=== PATIENT | female | born 1970 | race Caucasian/White ===

== ENCOUNTER 2017-09-05 11:08 | Inpatient (IN) | payer BC ==
[~2017-09-05 11:08] MED LIST: ROCURONIUM 50 MG INJ
[2017-09-05] MEDS: CEFAZOLIN 2 GM/50 ML (PMX) 50 ML IVPB (11:30)
[2017-09-05] MEDS ORDERED: LACTATED RINGER'S 1,000 ML IV* (11:30)
[2017-09-05] MEDS ORDERED: CEFAZOLIN 1 GM INJ (12:04)
[2017-09-05] MEDS ORDERED: SODIUM CL BACTERIOSTATIC 30 ML INJ (12:05)
[2017-09-05] MEDS ORDERED: HEPARIN 1000 UNITS/ML 10 ML INJ ×2 (12:17→12:18)
[2017-09-05] MEDS ORDERED: CEPASTAT LOZENGE MT (12:30)
[2017-09-05] MEDS ORDERED: AL HYDROX/MG HYDROX/SIMETH 30 ML CUP PO (12:30)
[2017-09-05] MEDS ORDERED: OXYCODONE/ACETAMINOPHEN (10/325) TAB PO ×2 (12:30)
[2017-09-05] MEDS ORDERED: HYDROmorphONE 0.5 MG/0.5 ML SYG IV (12:30)
[2017-09-05] MEDS ORDERED: NALOXONE (0.4 MG/ML) INJ IV (12:30)
[2017-09-05] MEDS: CEFAZOLIN 1 GM/50 ML (PMX) 50 ML IVPB ×2 (12:30→20:54)
[2017-09-05] MEDS ORDERED: PROPOFOL 20 ML (13:16)
[2017-09-05] MEDS ORDERED: SUCCINYLCHOLINE CHLORIDE 100 MG/5 ML SYG IV (13:16)
[2017-09-05] MEDS ORDERED: MIDAZOLAM 1 MG/ML 2 ML INJ (13:17)
[2017-09-05] MEDS ORDERED: LIDOCAINE 1% (MDV) 20 ML INJ (13:17)
[2017-09-05] MEDS ORDERED: DEXAMETHASONE 4 MG/ML 1 ML INJ (13:46)
[2017-09-05] MEDS ORDERED: ONDANSETRON 4 MG INJ (13:46)
[2017-09-05] MEDS ORDERED: FAMOTIDINE 20 MG INJ (14:00)
[2017-09-05] MEDS: BUPIVACAINE 0.5%/EPI (SDV) 30 ML INJ (14:25)
[2017-09-05] MEDS: SURGIFOAM POWDER 1 GM KIT (14:28)
[2017-09-05] MEDS: THROMBIN 5000 UNIT VIAL (14:29)
[2017-09-05] MEDS: GELATIN SIZE 100 SPONGE (14:30)
[2017-09-05] MEDS: HEPARIN 1000 UNITS/ML 10 ML INJ (14:31)
[2017-09-05] MEDS: CEFAZOLIN 1 GM INJ (14:33)
[2017-09-05] MEDS ORDERED: SUGAMMADEX SODIUM 200 MG/2 ML VIAL IV (16:40)
[2017-09-05] MEDS ORDERED: HYDROmorphONE (0.2 MG/ML) 10ML SYG IV ×2 (17:00)
[2017-09-05] MEDS: HYDROmorphONE 0.2 MG/ML PCA IV (17:01)
[2017-09-05] MEDS: DIPHENHYDRAMINE 50 MG INJ IV ×2 (17:14→19:38)
[2017-09-05] MEDS: MEPERIDINE 25 MG INJ IV (17:14)
[2017-09-05] MEDS: ONDANSETRON 4 MG INJ IV (18:25)
[2017-09-05] MEDS: D5W-0.45 NACL + KCL 20 MEQ 1,000 ML IV ×2 (19:31→22:15)
[2017-09-05] MEDS: GABAPENTIN 300 MG CAP PO (20:48)
[2017-09-05] MEDS: DOCUSATE SODIUM 100 MG CAP PO (22:58)
[2017-09-05] MEDS: ZOLPIDEM 5 MG TAB PO (23:27)
[2017-09-06] MEDS: HYDROmorphONE 0.2 MG/ML PCA IV ×4 (00:45→22:05)
[2017-09-06] MEDS ORDERED: EPHEDrine SULFATE 50 MG/5 ML SYG (04:32)
[2017-09-06] MEDS: CEFAZOLIN 1 GM/50 ML (PMX) 50 ML IVPB (04:36)
[2017-09-06 05:32] LABS: ADD MAN DIFF? NO
[2017-09-06 05:33] LABS: WHITE BLOOD COUNT 8.5 10^3/ul (4.8-10.8)
[2017-09-06 05:33] LABS: BASOPHILS % 0.2 % (0.0-2.0); HEMATOCRIT 29.9 % (37.0-47.0); HEMOGLOBIN 10.5 g/dl (12.0-16.0); LYMPHOCYTES # 0.9 10^3/ul (0.8-2.9); LYMPHOCYTES % 10.4 % (15.0-51.0); MEAN CORPUSCULAR HEMOGLOBIN 34.1 pg (29.0-33.0); MEAN CORPUSCULAR HGB CONC 35.1 g/dl (32.0-37.0); MEAN CORPUSCULAR VOLUME 97.1 fl (82.0-101.0); MEAN PLATELET VOLUME 10.5 fl (7.4-10.4); MONOCYTE # 0.7 10^3/ul (0.3-0.9); MONOCYTES % 7.9 % (0.0-11.0); NEUTROPHIL # 6.9 10^3/ul (1.6-7.5); PLATELET COUNT 223 10^3/UL (140-415); RED BLOOD COUNT 3.08 10^6/ul (4.20-5.40); RED CELL DISTRIBUTION WIDTH 11.8 % (11.5-14.5)
[2017-09-06] MEDS: D5W-0.45 NACL + KCL 20 MEQ 1,000 ML IV ×2 (05:42→18:37)
[2017-09-06 05:55] LABS: ANION GAP 8 (8-16); CARBON DIOXIDE 27 mmol/L (21-31); CHLORIDE 108 mmol/L (97-110); GLUCOSE 124 mg/dl (70-220); MAGNESIUM 1.5 mg/dl (1.7-2.5)
[2017-09-06 06:13] LABS: BLOOD UREA NITROGEN 4 mg/dl (7-20); CREATININE 0.54 mg/dl (0.44-1.00); POTASSIUM 3.7 mmol/L (3.5-5.1); SODIUM 139 mmol/L (135-144)
[2017-09-06] MEDS: HYDROmorphONE 1 MG/ML SYG IV ×3 (07:42→15:41)
[2017-09-06] MEDS: GABAPENTIN 300 MG CAP PO ×4 (07:48→20:08)
[2017-09-06] MEDS ORDERED: GABAPENTIN 300 MG CAP PO (09:00)
[2017-09-06] MEDS: DOCUSATE SODIUM 100 MG CAP PO ×2 (09:04→20:08)
[2017-09-06] MEDS: MAGNESIUM SULFATE 3 GM in DEXTROSE 5% 100 ML IVPB (09:13)
[2017-09-06] MEDS: DIPHENHYDRAMINE 50 MG INJ IV (09:53)
[2017-09-06] MEDS: DIAZEPAM 5 MG TAB PO ×2 (10:02→20:10)
[2017-09-06] MEDS ORDERED: HYDROmorphONE 0.2 MG/ML PCA IV (22:30)
[2017-09-06] MEDS: ACETAMINOPHEN 325 MG TAB PO (22:37)
[2017-09-07] MEDS: HYDROmorphONE 1 MG/ML SYG IV ×8 (01:52→22:52)
[2017-09-07] MEDS: D5W-0.45 NACL + KCL 20 MEQ 1,000 ML IV ×2 (04:05→14:15)
[2017-09-07 05:12] LABS: ADD MAN DIFF? NO
[2017-09-07] MEDS: HYDROmorphONE 0.2 MG/ML PCA IV ×2 (05:16→11:26)
[2017-09-07 05:18] LABS: WHITE BLOOD COUNT 5.2 10^3/ul (4.8-10.8)
[2017-09-07 05:18] LABS: BASOPHILS % 0.4 % (0.0-2.0); EOSINOPHILS % 0.4 % (0.0-7.0); HEMATOCRIT 30.7 % (37.0-47.0); HEMOGLOBIN 10.2 g/dl (12.0-16.0); LYMPHOCYTES # 0.8 10^3/ul (0.8-2.9); LYMPHOCYTES % 15.9 % (15.0-51.0); MEAN CORPUSCULAR HEMOGLOBIN 33.6 pg (29.0-33.0); MEAN CORPUSCULAR HGB CONC 33.2 g/dl (32.0-37.0); MONOCYTE # 0.5 10^3/ul (0.3-0.9); MONOCYTES % 10.3 % (0.0-11.0); NEUTROPHIL # 3.8 10^3/ul (1.6-7.5); NEUTROPHILS % 72.8 % (39.0-77.0); PLATELET COUNT 181 10^3/UL (140-415); RED BLOOD COUNT 3.04 10^6/ul (4.20-5.40); RED CELL DISTRIBUTION WIDTH 11.9 % (11.5-14.5)
[2017-09-07] MEDS: DIAZEPAM 5 MG TAB PO (05:53)
[2017-09-07 06:01] LABS: ANION GAP 8 (8-16); BLOOD UREA NITROGEN 3 mg/dl (7-20); CALCIUM 7.8 mg/dl (8.4-10.2); CARBON DIOXIDE 29 mmol/L (21-31); CHLORIDE 108 mmol/L (97-110); CREATININE 0.53 mg/dl (0.44-1.00); GLUCOSE 113 mg/dl (70-220); MAGNESIUM 1.7 mg/dl (1.7-2.5); POTASSIUM 4.3 mmol/L (3.5-5.1); SODIUM 141 mmol/L (135-144)
[2017-09-07 06:07] LABS: PHOSPHORUS 2.8 mg/dl (2.5-4.9)
[2017-09-07 06:16] LABS: IRON 12 ug/dl (35-150)
[2017-09-07 06:26] LABS: % IRON SATURATION 6 % SAT (22-52); TOTAL IRON BINDING CAPACITY 211 ug/dl (241-421)
[2017-09-07] MEDS: FERROUS FUMARATE (SR) TAB PO ×2 (09:24→20:26)
[2017-09-07] MEDS: GABAPENTIN 300 MG CAP PO ×3 (09:24→21:10)
[2017-09-07] MEDS: DOCUSATE SODIUM 100 MG CAP PO ×2 (09:24→20:27)
[2017-09-07] MEDS: MAGNESIUM SULFATE 2 GM/50 ML 50 ML IVPB (09:26)
[2017-09-07] MEDS ORDERED: OXYCODONE/ACETAMINOPHEN (10/325) TAB PO ×3 (16:09→16:30)
[2017-09-07] MEDS: OXYCODONE/ACETAMINOPHEN (10/325) TAB PO ×2 (16:18→21:10)
[2017-09-07 17:07] LABS: ADD UMIC NO; UR ASCORBIC ACID NEGATIVE (NEGATIVE); UR BILIRUBIN (Dip) NEGATIVE (NEGATIVE); UR BLOOD (Dip) NEGATIVE (NEGATIVE); UR CLARITY CLEAR (CLEAR); UR COLOR YELLOW (YELLOW); UR GLUCOSE (Dip) NEGATIVE (NEGATIVE); UR KETONES (Dip) NEGATIVE (NEGATIVE); UR LEUKOCYTE ESTERASE (Dip) NEGATIVE Leu/ul (NEGATIVE); UR NITRITE (Dip) NEGATIVE (NEGATIVE); UR TOTAL PROTEIN (Dip) NEGATIVE (NEGATIVE); UR UROBILINOGEN (Dip) NEGATIVE (NEGATIVE)
[2017-09-08] MEDS: D5W-0.45 NACL + KCL 20 MEQ 1,000 ML IV ×3 (00:15→20:15)
[2017-09-08] MEDS: DIAZEPAM 5 MG TAB PO (01:25)
[2017-09-08] MEDS: OXYCODONE/ACETAMINOPHEN (10/325) TAB PO ×5 (01:57→21:13)
[2017-09-08] MEDS: HYDROmorphONE 1 MG/ML SYG IV ×4 (04:57→18:12)
[2017-09-08 05:34] LABS: ADD MAN DIFF? NO
[2017-09-08 05:49] LABS: WHITE BLOOD COUNT 5.1 10^3/ul (4.8-10.8)
[2017-09-08 05:49] LABS: BASOPHILS % 0.4 % (0.0-2.0); EOSINOPHILS % 0.8 % (0.0-7.0); HEMATOCRIT 33.5 % (37.0-47.0); HEMOGLOBIN 11.1 g/dl (12.0-16.0); LYMPHOCYTES # 1.1 10^3/ul (0.8-2.9); MEAN CORPUSCULAR HEMOGLOBIN 33.4 pg (29.0-33.0); MEAN CORPUSCULAR HGB CONC 33.1 g/dl (32.0-37.0); MEAN CORPUSCULAR VOLUME 100.9 fl (82.0-101.0); MONOCYTE # 0.4 10^3/ul (0.3-0.9); MONOCYTES % 8.5 % (0.0-11.0); NEUTROPHIL # 3.5 10^3/ul (1.6-7.5); NEUTROPHILS % 69.1 % (39.0-77.0); PLATELET COUNT 211 10^3/UL (140-415); RED BLOOD COUNT 3.32 10^6/ul (4.20-5.40); RED CELL DISTRIBUTION WIDTH 11.9 % (11.5-14.5)
[2017-09-08 06:44] LABS: ANION GAP 12 (8-16); BLOOD UREA NITROGEN 3 mg/dl (7-20); CALCIUM 8.8 mg/dl (8.4-10.2); CARBON DIOXIDE 30 mmol/L (21-31); CHLORIDE 106 mmol/L (97-110); CREATININE 0.47 mg/dl (0.44-1.00); GLUCOSE 103 mg/dl (70-220); MAGNESIUM 1.8 mg/dl (1.7-2.5); POTASSIUM 4.2 mmol/L (3.5-5.1); SODIUM 144 mmol/L (135-144)
[2017-09-08] MEDS: FERROUS FUMARATE (SR) TAB PO ×2 (08:31→21:13)
[2017-09-08] MEDS: DOCUSATE SODIUM 100 MG CAP PO ×2 (08:32→21:13)
[2017-09-08] MEDS: GABAPENTIN 300 MG CAP PO ×3 (08:32→21:13)
[2017-09-08] MEDS: ONDANSETRON 4 MG INJ IV (16:40)
[2017-09-08] MEDS: BISACODYL 10 MG SUPP PR (18:12)
[2017-09-09] MEDS: HYDROmorphONE 1 MG/ML SYG IV ×2 (01:06→08:39)
[2017-09-09] MEDS: D5W-0.45 NACL + KCL 20 MEQ 1,000 ML IV ×2 (06:15→14:22)
[2017-09-09] MEDS: OXYCODONE/ACETAMINOPHEN (10/325) TAB PO ×2 (06:46→12:40)
[2017-09-09] MEDS: FERROUS FUMARATE (SR) TAB PO (08:40)
[2017-09-09] MEDS: GABAPENTIN 300 MG CAP PO ×2 (08:40→12:41)
[2017-09-09] MEDS: DOCUSATE SODIUM 100 MG CAP PO (08:40)
[2017-09-09] MEDS: ONDANSETRON 4 MG INJ IV (10:39)
[2017-09-09] MEDS: DIAZEPAM 5 MG TAB PO (14:52)
== END 2017-09-09 15:33 | disposition home or self-care (01) | DRG 455 ==
LOC: MS1 09-06 11:19 → REC 11:08
PROC: 0SG30A0 Fusion of Lumbosacral Joint with Interbody Fusion Device, Anterior Approach, Anterior Column, Open Approach (ICD-10-PCS; principal; 2017-09-05 13:00)
PROC: 0SG30K1 Fusion of Lumbosacral Joint with Nonautologous Tissue Substitute, Posterior Approach, Posterior Column, Open Approach (ICD-10-PCS; 2017-09-05 13:00)
PROC: 0ST40ZZ Resection of Lumbosacral Disc, Open Approach (ICD-10-PCS; 2017-09-05 13:00)
PROC: 07DR3ZZ Extraction of Iliac Bone Marrow, Percutaneous Approach (ICD-10-PCS; 2017-09-05 13:00)
PROC: 4A11X4G Monitoring of Peripheral Nervous Electrical Activity, Intraoperative, External Approach (ICD-10-PCS; 2017-09-05 13:00)
DX: M51.17 Intervertebral disc disorders with radiculopathy, lumbosacral region (principal); E83.42 Hypomagnesemia; D50.9 Iron deficiency anemia, unspecified; M48.07 Spinal stenosis, lumbosacral region; Z85.42 Personal history of malignant neoplasm of other parts of uterus; Z92.21 Personal history of antineoplastic chemotherapy; Z92.3 Personal history of irradiation
CPT/HCPCS: 72020; 72114; 80048; 81003; 82728; 83540; 83735; 84100; 85025; 86999; 87086; 97116; 97163; 97530